=== PATIENT | male | born 1940 | race Caucasian/White ===

== ENCOUNTER 2019-01-25 12:09 | Emergency (ER) | payer MEDICARE ==
[~2019-01-25] VITALS: Ht 177.8 cm; Wt 77.1 kg
--- OUTSIDE RECORDS SUMMARY | ~2019-01-25 | XMS | Clinical Summary ---
Demographics + + + | Address | [address] | | | [place] [address] | + + + | Home Phone | | + + + | Preferred Language | Unknown | + + + | Marital Status | | + + + | Judaism Affiliation | Unknown | + + + | Race | Unknown | + + + | Ethnic Group | Unknown | + + + Author + + + | Author | [facility] | | | and Valentinana | + + + | Organization | [facility] | | | and Valentinana | + + + | Address | Unknown | + + + | Phone | Unavailable | + + + Support + + + + + | Name | Relationship | Address | Phone | + + + + + | Allison Birch | ECON | [address] | | | | | [place] | | | | | [address] | | + + + + + Care Team Providers + +------+ + | Care Decision Support Manager Name | Role | Phone | + +------+ + | Stevo Calixto | PP | | | MD | | | + +------+ + Allergies Not on File Current Medications Not on file Active Problems Not on file Social History + +-------+ +--------+------+ | Tobacco Use | Types | Packs/Day | Years | Date | | | | | Used | | + +-------+ +--------+------+ | Never Assessed | | | | | + +-------+ +--------+------+ + + + | Sex Assigned at | Date Recorded | | | | + + + | Not on file | | + + + Plan of Treatment + + + + + | Health Maintenance | Due Date | Last Done | Comments | + + + + + | Vaccine: | | | | | Dtap/Tdap/Td (1 - | 7 | | | | Tdap) | | | | + + + + + | Vaccine: Zoster (1 | | | | | of 2) | 8 | | | + + + + + | Vaccine: | | | | | Pneumococcal 65+ | 3 | | | | Low/Medium Risk (1 | | | | | of 2 - PCV13) | | | | + + + + + | Vaccine: Influenza | | | | | (Season Ended) | 9 | | | + + + + + Results Not on filefrom Last 3 Months Insurance + +--------+ +--------+-------+---------+ | Payer | Benefi | Subscriber | Type | Phone | Address | | | t Plan | ID | | | | | | / | | | | | | | Group | | | | | + +--------+ +--------+-------+---------+ | [employer] | MODA | [id number] | Medica | | | | | HEALTH | | re | | | | | MDCR | | | | | + +--------+ +--------+-------+---------+ + +--------+ +--------+ + + | Guarantor Name | Accoun | Relation to | Date | Phone | Billing Address | | | t Type | Patient | of | | | | | | | | | | + +--------+ +--------+ + + | SOHAM BIRCH | Person | Self | [birth year] | Home: | [address] [facility] | | | al/Fam | | 1940 | [phone] | [place] | | | an[place]a | | | [phone] | + +--------+ +--------+ + +"
--- OUTSIDE RECORDS SUMMARY | ~2019-01-25 | XMS | Clinical Summary ---
Demographics + + + | Address | [address] | | | [place] [address] | + + + | Home Phone | | + + + | Preferred Language | Unknown | + + + | Marital Status | | + + + | Hoahaoism Affiliation | Unknown | + + + | Race | Unknown | + + + | Ethnic Group | Unknown | + + + Author + + + | Author | [facility] | + + + | Organization | [facility] | + + + | Address | Unknown | + + + | Phone | Unavailable | + + + Support + + + + + | Name | Relationship | Address | Phone | + + + + + | Allison Birch | ECON | [address] | | | | | [place] | | | | | [address] | | + + + + + Care Team Providers + +------+ + | Care Telegraph Repeater Mechanic Name | Role | Phone | + +------+ + | Stevo Calixto MD | PP | | + +------+ + Allergies + + + + + + | Active Allergy | Reactions | Severity | Noted | Comments | | | | | Date | | + + + + + + | Penicillins | Other (See Comments) | Medium | | unknown | + + + + + + | Tiotropium | Other (See Comments) | Medium | 06/19/20 | Eyes blurred | | | | | 18 | | + + + + + + Current Medications + + +--------+---------+------+------+-------+ | Prescription | Sig. | Disp. | Refills | Star | End | Statu | | | | | | t | Date | s | | | | | | Date | | | + + +--------+---------+------+------+-------+ | aspirin 81 MG | Take 81 mg by mouth | | | | | Activ | | chewable | daily. | | | | | e | | tabletIndications: | | | | | | | | Lumbar stenosis with | | | | | | | | neurogenic | | | | | | | | claudication, | | | | | | | | Degeneration of | | | | | | | | intervertebral disc | | | | | | | | of lumbar region, | | | | | | | | Herniated lumbar | | | | | | | | intervertebral disc, | | | | | | | | Synovial cyst of | | | | | | | | lumbar facet joint, | | | | | | | | Neural foraminal | | | | | | | | stenosis of lumbar | | | | | | | | spine | | | | | | | + + +--------+---------+------+------+-------+ | Calcium 500-100 | Take 500 mg by mouth | | | | | Activ | | MG-UNIT | daily. | | | | | e | | CHEWIndications: | | | | | | | | Lumbar stenosis with | | | | | | | | neurogenic | | | | | | | | claudication, | | | | | | | | Degeneration of | | | | | | | | intervertebral disc | | | | | | | | of lumbar region, | | | | | | | | Herniated lumbar | | | | | | | | intervertebral disc, | | | | | | | | Synovial cyst of | | | | | | | | lumbar facet joint, | | | | | | | | Neural foraminal | | | | | | | | stenosis of lumbar | | | | | | | | spine | | | | | | | + + +--------+---------+------+------+-------+ | cetirizine | 10 mg. | | | | | Activ | | (ZYRTEC) 10 MG | | | | | | e | | tabletIndications: | | | | | | | | Lumbar stenosis with | | | | | | | | neurogenic | | | | | | | | claudication, | | | | | | | | Degeneration of | | | | | | | | intervertebral disc | | | | | | | | of lumbar region, | | | | | | | | Herniated lumbar | | | | | | | | intervertebral disc, | | | | | | | | Synovial cyst of | | | | | | | | lumbar facet joint, | | | | | | | | Neural foraminal | | | | | | | | stenosis of lumbar | | | | | | | | spine | | | | | | | + + +--------+---------+------+------+-------+ | Glucosamine | glucosamine sulfate | | | | | Activ | | Sulfate 500 MG | 500 mg tablet Take | | | | | e | | TABSIndications: | by oral route. | | | | | | | Lumbar stenosis with | | | | | | | | neurogenic | | | | | | | | claudication, | | | | | | | | Degeneration of | | | | | | | | intervertebral disc | | | | | | | | of lumbar region, | | | | | | | | Herniated lumbar | | | | | | | | intervertebral disc, | | | | | | | | Synovial cyst of | | | | | | | | lumbar facet joint, | | | | | | | | Neural foraminal | | | | | | | | stenosis of lumbar | | | | | | | | spine | | | | | | | + + +--------+---------+------+------+-------+ | latanoprost | latanoprost 0.005 % | | | | | Activ | | (XALATAN) 0.005 % | eye drops | | | | | e | | ophthalmic | | | | | | | | solutionIndications: | | | | | | | | Lumbar stenosis | | | | | | | | with neurogenic | | | | | | | | claudication, | | | | | | | | Degeneration of | | | | | | | | intervertebral disc | | | | | | | | of lumbar region, | | | | | | | | Herniated lumbar | | | | | | | | intervertebral disc, | | | | | | | | Synovial cyst of | | | | | | | | lumbar facet joint, | | | | | | | | Neural foraminal | | | | | | | | stenosis of lumbar | | | | | | | | spine | | | | | | | + + +--------+---------+------+------+-------+ | gabapentin | 300 mg 3 (three) | | | | | Activ | | (NEURONTIN) 300 MG | times daily. | | | 12/11 | | e | | capsuleIndications: | | | | 18 | | | | Lumbar stenosis with | | | | | | | | neurogenic | | | | | | | | claudication, | | | | | | | | Degeneration of | | | | | | | | intervertebral disc | | | | | | | | of lumbar region, | | | | | | | | Herniated lumbar | | | | | | | | intervertebral disc, | | | | | | | | Synovial cyst of | | | | | | | | lumbar facet joint, | | | | | | | | Neural foraminal | | | | | | | | stenosis of lumbar | | | | | | | | spine | | | | | | | + + +--------+---------+------+------+-------+ | meloxicam (MOBIC) | | | | 04/21 | | Activ | | 15 MG | | | | 05/10 | | e | | tabletIndications: | | | | 18 | | | | Lumbar stenosis with | | | | | | | | neurogenic | | | | | | | | claudication, | | | | | | | | Degeneration of | | | | | | | | intervertebral disc | | | | | | | | of lumbar region, | | | | | | | | Herniated lumbar | | | | | | | | intervertebral disc, | | | | | | | | Synovial cyst of | | | | | | | | lumbar facet joint, | | | | | | | | Neural foraminal | | | | | | | | stenosis of lumbar | | | | | | | | spine | | | | | | | + + +--------+---------+------+------+-------+ | Naproxen Sodium | Take by mouth. | | | | | Activ | | 220 MG CAPS | | | | | | e | + + +--------+---------+------+------+-------+ | | 1 to 2 tablets every | 60 | 0 | 08/3 | | Activ | | HYDROcodone-acetamin | 6 hours as needed | tablet | | 0/20 | | e | | ophen (NORCO) 5-325 | for pain | | | 18 | | | | MG per tablet | | | | | | | + + +--------+---------+------+------+-------+ Active Problems + + + | Problem | Noted Date | + + + | Lumbar stenosis with neurogenic claudication | 06/12/2018 | + + + | Degeneration of intervertebral disc of lumbar region | 06/12/2018 | + + + | Herniated lumbar intervertebral disc | 06/12/2018 | + + + | Synovial cyst of lumbar facet joint | 06/12/2018 | + + + | Neural foraminal stenosis of lumbar spine | 06/12/2018 | + + + Family History + + +------+ + | Medical History | Relation | Name | Comments | + + +------+ + | Heart disease | Mother | | | + + +------+ + | Malig hypertherm | Neg Hx | | | + + +------+ + + +------+ + + | Relation | Name | Status | Comments | + +------+ + + | Father | | | | + +------+ + + | Mother | | | | + +------+ + + Social History + +-------+ +--------+------+ | Tobacco Use | Types | Packs/Day | Years | Date | | | | | Used | | + +-------+ +--------+------+ | Former Smoker | | | | | + +-------+ +--------+------+ + +---+---+---+ | Smokeless Tobacco: | | | | | Never Used | | | | + +---+---+---+ + + | Tobacco Cessation: Counseling Given: No | | Comments: quit 1984 | + + + + +---------+ + | Alcohol Use | Drinks/We | oz/Week | Comments | | | ek | | | + + +---------+ + | No | | | | + + +---------+ + + + + | Sex Assigned at | Date Recorded | | | | + + + | Not on file | | + + + Last Filed Vital Signs + + + + | Vital Sign | Reading | Time Taken | + + + + | Blood Pressure | 146/88 | 06/20/2018 1:30 PM PDT | + + + + | Pulse | 75 | 06/20/2018 11:19 AM PDT | + + + + | Temperature | 36.5 C (97.7 F) | 06/20/2018 11:19 AM PDT | + + + + | Respiratory Rate | 18 | 06/20/2018 11:19 AM PDT | + + + + | Oxygen Saturation | 98% | 06/20/2018 11:19 AM PDT | + + + + | Inhaled Oxygen | - | - | | Concentration | | | + + + + | Weight | 79.4 kg (175 lb) | 09/16/2018 11:41 AM PST | + + + + | Height | 180.3 cm (5' 11") | 09/16/2018 11:41 AM PST | + + + + | Body Mass Index | 24.41 | 09/16/2018 11:41 AM PST | + + + + Plan of Treatment + [...] | | | + +--------+ +--------+-------+---------+ | MA - [facility]A | MA - | [id number] | Medica | | | | | MODA | | re | | | | | | | | | | | | | | | | | | | | | | | | | | | | | | | | | | | | | | | | MA - | | | | | | | MODA | | | | | + +--------+ [...] | Self [birth year] | Home: | [address] [facility] | | | al/Fam | | 1940 | [phone] | [place] | | | [place] | | | [phone] | [phone] | + +--------+ +--------+ + +
--- OUTSIDE RECORDS SUMMARY | ~2019-01-25 | XMS | Clinical Summary ---
Demographics + + + | Address | [address] | | | [place] [address] | + + + | Home Phone | | + + + | Preferred Language | Unknown | + + + | Marital Status | | + + + | Restorationism Affiliation | Unknown | + + + | Race | Unknown | + + + | Ethnic Group | Unknown | + + + Author + + + | Author | [facility] | + + + | Organization | [facility] | + + + | Address | Unknown | + + + | Phone | Unavailable | + + + Support + + + + + | Name | Relationship | Address | Phone | + + + + + | Allison Birch | ECON | [address] | | | | | [place] | | | | | [address] | | + + + + + Care Team Providers + +------+ + | Care Yarn Dyer Name | Role | Phone | + [...] MA - MODA | MA - | [id number] | Medica | | | | | [...] | Self | [birth year] | Home: | [address] [facility] | | | al/Fam | | 1940 | [phone] | [place] | | | [place] | | | [phone] | [phone] | + +--------+ +--------+ + +
--- OUTSIDE RECORDS SUMMARY | ~2019-01-25 | XMS | Clinical Summary ---
Demographics + + + | Address | [address] | | | [place] [address] | + + + | Home Phone | | + + + | Preferred Language | Unknown | + + + | Marital Status | | + + + | Nondenominational Affiliation | Unknown | + + + | Race | Unknown | + + + | Ethnic Group | Unknown | + + + Author + + + | Author | [facility] | | | and Valentinana | + + + | Organization | [facility] | | | and [place] | + + + | Address | Unknown | + + + | Phone | Unavailable | + + + Support + + + + + | Name | Relationship | Address | Phone | + + + + + | Allison Birch | ECON | [address] | | | | | [place] | | | | | [phone] | | + + + + + Care Team Providers + +------+ + | Care Fine Arts Teacher Name | Role | Phone | + [...] | [employer] | MODA | [id number] | Medica | | | | | [...] | Self | [birth year] | Home: | [address] [facility] | | | al/Fam | | 1940 | [phone] | [place] | | | [place] | | | [phone] | [phone] | + +--------+ +--------+ + +"
[~2019-01-25 12:09] MED LIST: ADVIL200 MG PO; ASPIRIN EC81 MG PO; BENICAR40 MG PO; GLUCOSAMINE &1 EAC1 PO; IBUPROFEN600 MG PO; LATANOPROST2.5 ML OPTH; MULTIVITAMIN; OXYCODON-ACETA1 EAC2 PO; PROMETHAZINE HC25 M1 PO; ZYRTEC10 MG PO
[2019-01-25] MEDS ORDERED: NORVASC5 MG PO (12:19)
[2019-01-25] MEDS ORDERED: METOPROLOL SUCC50 MG PO (13:10)
== END 2019-01-25 13:30 | disposition home or self-care (01) ==
LOC: ED 12:09
DX: I10 Essential (primary) hypertension (principal); Z87.891 Personal history of nicotine dependence; Z88.0 Allergy status to penicillin; Z79.899 Other long term (current) drug therapy; Z79.82 Long term (current) use of aspirin
CPT/HCPCS: 99283

== ENCOUNTER 2019-12-08 07:05 | Day surgery (SDC) | payer MEDICARE ==
[~2019-12-08] VITALS: Ht 180.3 cm; Wt 79.8 kg
[~2019-12-08 07:05] MED LIST changes: +CALCIUM500 MG PO; +MAGNESIUM250 MG PO; +METOPROLOL SUCC50 MG PO; +NORVASC5 MG PO
[2019-12-08] MEDS ORDERED: MAGNESIUM500 MG PO (07:32)
[2019-12-08] MEDS ORDERED: DIOVAN160 MG PO (07:33)
[2019-12-08] MEDS ORDERED: XOPENEX0.31 MG/3 INH (07:34)
--- NOTE | 2019-12-08 09:10 | NUR ---
[facility]19 [facility] ARRIVED IN PACU SLEEPY WITH NO C/O'S. ABD SOFT AND PASSING FLATUS.
--- NOTE | 2019-12-09 12:13 | OR ---
[facility] [address] [place], [place] [address] Signed DATE OF OPERATION: 12/08/2019 SURGEON: Idalia Cortez MD PREOPERATIVE DIAGNOSIS: Colon screening. POSTOPERATIVE DIAGNOSES: 1. Sigmoid diverticulosis. 2. Small cecal polyp (excised). PROCEDURE: Total colonoscopy to cecum with cold morcellation polypectomy x1. ANESTHESIA: Intravenous sedation, fentanyl 100 mcg, Versed 4 mg. INDICATION: This 79-year-old white man is a patient of Dr. Calixto. He last underwent colon screening by [facility] 18 years ago. He is symptom free. He has no family history of colon cancer. He is admitted at this time to undergo surveillance screening colonoscopy. He understands the risks of bleeding, infection, and perforation. FINDINGS: The prep was excellent. Complete colonoscopy was undertaken to the cecum. There were several diverticula of the sigmoid and left colon. There was a small polyp of the cecum, which was excised with cold morcellation technique. It was not far from the orifice of the appendix. There were no other findings of concern. DESCRIPTION OF PROCEDURE: The patient was brought to the endoscopy suite and placed in lateral decubitus position, given intravenous sedation to the point of slurred speech and nystagmus. Digital rectal examination was normal. An Olympus video colonoscope was passed in the rectum and manipulated throughout the colon noting numerous diverticula of the sigmoid and left colon. The scope was ultimately passed to the cecum. The ileocecal valve and appendiceal orifice were normal. Not far, but not in the appendiceal orifice, was a small adenomatous-appearing polyp. This was excised with cold morcellation technique without problem. The scope was further withdrawn and examination throughout showed no other findings of polyps. Electronically Signed By: IDALIA COTREZ MD 12/09/19 1213 PATIENT NAME: ANGIE BIRCH OPERATIVE REPORT DATE OF : 36 REPORT #: [id number] PHYSICIAN: IDALIA CORTEZ MD PCP: ALEXSANDRA CALIXTO MD REPORT IS CONFIDENTIAL AND NOT TO BE RELEASED WITHOUT AUTHORIZATION [facility] [address] [place], [place] [address] Signed Retroflexed view of the rectum was normal. Scope was removed. The patient was taken to recovery room in good condition. CONCLUDING DIAGNOSES: 1. Polyp of cecum, completely excised. 2. Diverticulosis. PLAN: Recommend high-fiber diet and repeat colonoscopy in 5 years based on findings. MD GUILLERMO Ames/MODL /[id number] cc: Alexsandra Calixto MD Copies: ALEXSANDRA CALIXTO MD ~ Electronically Signed By: IDALIA CORTEZ MD 12/09/19 1213 PATIENT NAME: ANGIE BIRCH OPERATIVE REPORT DATE OF : 36 REPORT #: [id number] PHYSICIAN: IDALIA CORTEZ MD PCP: ALEXSANDRA CALIXTO MD REPORT IS CONFIDENTIAL AND NOT TO BE RELEASED WITHOUT AUTHORIZATION
--- NOTE | 2019-12-09 17:09 | PATH ---
[facility] [address] [place], [place] [address] Signed SPECIMEN(S): A CECAL POLYP SPECIMEN SOURCE: A. CECAL POLYP CLINICAL HISTORY: Colon screening. MICROSCOPIC DESCRIPTION: Histologic sections of all submitted blocks are examined by light microscopy. These findings, together with the gross examination, support the pathologic diagnosis. FINAL PATHOLOGIC DIAGNOSIS: Mucosa, cecum, biopsy: - Hyperplastic polyp. LJA:cml:C2NR GROSS DESCRIPTION: The specimen, labeled "HB, cecum per requisition," is received in formalin and consists of multiple gonzales soft tissue fragments that measure 0.3 cm in greatest dimension. The specimen is entirely submitted in cassette (A1). AT (under the direct supervision of a pathologist) The Gross Description was prepared using a voice recognition system. The report was reviewed for accuracy; however, sound-alike word errors, addition and/or deletions may occur. If there is any question about this report, please contact Client Services. PERFORMING LABORATORY: The technical component was performed by [facility] [address] (Community Living Instructor: Noemy Monterroso MD; CLIA# [id number]). Professional interpretation was performed by [facility], [address] [address] (CLIA# [id number]). Diagnostician: Javier Mckeon MD Pathologist Electronically Signed 12/09/2019 Copies: PATIENT NAME: ANGIE BIRCH PATHOLOGY DATE OF : 36 REPORT #: [id number] PHYSICIAN: ADEEL PATHOLOGY PCP: ALEXSANDRA WEBER MD REPORT IS CONFIDENTIAL AND NOT TO BE RELEASED WITHOUT AUTHORIZATION [address] [place], [place] [address] Signed ~ PATIENT NAME: ANGIE BIRCH PATHOLOGY DATE OF : 36 REPORT #: [id number] PHYSICIAN: ADEEL PATHOLOGY PCP: ALEXSANDRA WEBER MD REPORT IS CONFIDENTIAL AND NOT TO BE RELEASED WITHOUT AUTHORIZATION
== END 2019-12-08 09:30 | disposition home or self-care (01) ==
LOC: OPS 07:05 → DS 07:05 → OPS 08:30
PROVIDERS: Surgery
PROC: 0DBH8ZZ Excision of Cecum, Via Natural or Artificial Opening Endoscopic (ICD-10-PCS; principal; 2019-12-08 08:30)
DX: Z12.11 Encounter for screening for malignant neoplasm of colon (principal); K57.30 Diverticulosis of large intestine without perforation or abscess without bleeding; K63.5 Polyp of colon; K21.9 Gastro-esophageal reflux disease without esophagitis; I10 Essential (primary) hypertension; H40.9 Unspecified glaucoma; R06.2 Wheezing; Z88.0 Allergy status to penicillin; Z88.8 Allergy status to other drugs, medicaments and biological substances; Z79.899 Other long term (current) drug therapy; Z87.891 Personal history of nicotine dependence
CPT/HCPCS: 99153; G0500; J2250; J3010; J7121

== ENCOUNTER 2022-11-30 09:20 | Emergency (ER) | payer MEDICARE ==
[~2022-11-30] VITALS: Ht 180.3 cm; Wt 81.1 kg
[~2022-11-30 09:20] MED LIST changes: +DIOVAN160 MG PO; +MAGNESIUM500 MG PO; +XOPENEX0.31 MG/3 INH
--- OUTSIDE RECORDS SUMMARY | 2022-11-30 09:22 | XMS ---
PreManage Notification: ANGIE BIRCH [employer] Department Chair Events No recent Security Events currently on file CRITERIA MET - PDMP CARE PROVIDERS [facility] Current PHONE: Unknown Moisés has no Care Guidelines for this patient. EMin VISIT COUNT (12 MO.) 1 CARMELLA Coffman TOTAL 1 NOTE: Visits indicate total known visits. ED/UCC VISIT TRACKING (12 MO.) 11/30/2022 09:20 CARMELLA [place] TYPE: Emergency COMPLAINT: - DIZZY, LIGHTHEADED INPATIENT VISIT TRACKING (12 MO.) No inpatient visits to display in this time frame [email or web address]
[2022-11-30] MEDS ORDERED: GABAPENTIN100 MG PO (09:34)
[2022-11-30] MEDS ORDERED: CYCLOBENZAPRINE5 MG PO (09:34)
[2022-11-30] MEDS ORDERED: OLMESARTAN MEDO40 MG PO (09:34)
[2022-11-30] MEDS ORDERED: HYDROCHLOROTH12.5 MG PO (09:34)
--- NOTE | 2022-12-01 17:41 | EKG ---
[facility] [address] [place] [address] Signed Sinus bradycardia with sinus arrhythmia with 1st degree AV block Right bundle branch block Left anterior fascicular block Bifascicular block Minimal voltage criteria for LVH, may be normal variant ( R in aVL ) Septal infarct , age undetermined Abnormal ECG When compared with ECG of 26-DEC-2016 13:19, (RBBB and left anterior fascicular block) is now present Septal infarct is now present Confirmed by SOLE DOMINGUEZ MD ([id number]) on 12/01/2022 5:41:22 PM Electronically Signed By: SOLE DOMINGUEZ MD 12/01/22 1741 PATIENT NAME: ANGIE BIRCH Electrocardiogram DATE OF : 36 PHYSICIAN: SOLE DOMINGUEZ MD REPORT #: [id number] REPORT IS CONFIDENTIAL AND NOT TO BE RELEASED WITHOUT AUTHORIZATION
== END 2022-11-30 12:17 | disposition home or self-care (01) ==
LOC: ED 09:20
DX: R00.1 Bradycardia, unspecified (principal); I10 Essential (primary) hypertension; Z87.891 Personal history of nicotine dependence; Z88.0 Allergy status to penicillin; Z88.8 Allergy status to other drugs, medicaments and biological substances; Z79.899 Other long term (current) drug therapy; Z79.82 Long term (current) use of aspirin
CPT/HCPCS: 36415; 80053; 83735; 84484; 85025; 93005; 93010; 99284-25